=== PATIENT | female | born 1995 | race African-American/Black ===

== ENCOUNTER 2017-01-20 18:36 | Emergency (ER) | payer OTHER ==
[~2017-01-20] VITALS: Ht 172.7 cm; Wt 81.6 kg
[2017-01-20] MEDS ORDERED: NS 1,000 ML IV ONE (20:00)
[2017-01-20] MEDS ORDERED: ACETAMINOPHEN 325 MG TAB PO ONE (20:00)
[2017-01-20] MEDS ORDERED: KETOROLAC 30 MG/ML VIAL (J1885) IV ONE (20:00)
[2017-01-20 20:01] LABS: CONTROL LINE UCG INT CTR LINE PRESENT
[2017-01-20 20:45] LABS: BASO % 0.2 % (0.0-1.0); LARGE UNSTAINED CELL # 0.2 K/mm3 (0.0-0.4); LARGE UNSTAINED CELL % 0.9 % (0.0-4.0); LYMPH # 1.5 K/mm3 (1.5-6.5); LYMPH % 7.7 % (24.0-44.0); MEAN CORPUSCULAR HEMOGLOBIN 31.2 pg (27.0-33.0); MEAN CORPUSCULAR HGB CONC 33.5 g/dl (32.0-36.5); MEAN CORPUSCULAR VOLUME 93.2 fl (80.0-96.0); MONO # 0.9 K/mm3 (0.0-0.8); MONO % 4.9 % (0.0-5.0); NEUTROPHILS # 16.6 K/mm3 (1.8-7.7); NEUTROPHILS % 86.3 % (36.0-66.0); PLATELET COUNT, AUTOMATED 256 k/mm3 (150-450); RED CELL DISTRIBUTION WIDTH 12.7 % (11.5-14.5); WHITE BLOOD COUNT 19.2 K/mm3 (4.0-10.0)
[2017-01-20] MEDS ORDERED: cefTRIAXone SOD 2 GM VIAL (J0696) IM ONE (20:45)
[2017-01-20 20:53] VITALS: BP 103/54
[2017-01-20 21:08] LABS: ALBUMIN 4.1 GM/DL (3.2-5.2); ALBUMIN/GLOBULIN RATIO 1.11 (1.00-1.93); ALKALINE PHOSPHATASE 108 U/L (45-117); ALT/SGPT 30 U/L (12-78); ANION GAP 8 MEQ/L (8-16); AST/SGOT 26 U/L (15-37); BILIRUBIN,DIRECT 0.3 MG/DL (0.0-0.2); BILIRUBIN,TOTAL 1.2 MG/DL (0.2-1.0); BLOOD UREA NITROGEN 7 MG/DL (7-18); CALCIUM LEVEL 8.9 MG/DL (8.5-10.1); CARBON DIOXIDE LEVEL 28 MEQ/L (21-32); CHLORIDE LEVEL 99 MEQ/L (98-107); CREATININE FOR GFR 1.01 MG/DL (0.55-1.02); GLUCOSE, FASTING 109 MG/DL (70-105); POTASSIUM SERUM 3.3 MEQ/L (3.5-5.1); SODIUM LEVEL 135 MEQ/L (136-145); TOTAL PROTEIN 7.8 GM/DL (6.4-8.2)
[2017-01-20] MEDS ORDERED: cefTRIAXone SOD 2 GM in D5W MINI-BAG PLUS 50 ML IV ONE (21:15)
[2017-01-20] MEDS ORDERED: CIPR500T89 PO (21:48)
[2017-01-20] MEDS ORDERED: CIPROFLOXACIN 500 MG TAB PO ONE (22:00)
== END 2017-01-20 21:56 | disposition home or self-care (01) ==
LOC: M ED 19:52
DX: N10 Acute pyelonephritis (principal); N30.00 Acute cystitis without hematuria; R10.32 Left lower quadrant pain
CPT/HCPCS: 80048; 80076; 81001; 83605; 83690; 84703; 85025; 87040; 87088; 87186; 96361; 96365; 96375; 99282; J1885

== ENCOUNTER 2018-03-11 13:03 | Emergency (ER) | payer OTHER | END 2018-03-11 17:15 | disposition left against medical advice (07) | LOC: M ED 13:03 | DX: Z53.21 Procedure and treatment not carried out due to patient leaving prior to being seen by health care provider (principal) ==